=== PATIENT | female | born 1940 | race Caucasian/White ===

== ENCOUNTER 2021-05-13 12:17 | Emergency (ER) | payer MEDICARE, OTHER ==
[~2021-05-13] VITALS: Ht 167.6 cm; Wt 80.3 kg
[~2021-05-13 12:17] MED LIST: AMLODIPINE-BEN1 EACH PO; CHLORTHALIDONE25 MG PO; DESONIDE5 GM MC; HYDRALAZINE HCL25 MG PO; HYDROXYZINE HCL25 MG PO; LEVOTHYROXINE75 MCG PO; LOSARTAN POTASS50 MG PO; PREDNISONE20 MG PO
[2021-05-13] MEDS ORDERED: VITAMIN C500 M5 PO (12:38)
[2021-05-13] MEDS ORDERED: ELIQUIS5 MG PO (12:38)
[2021-05-13] MEDS ORDERED: LIPITOR20 MG (12:39)
[2021-05-13] MEDS ORDERED: COREG6.25 MG PO (12:39)
[2021-05-13] MEDS ORDERED: CALCIUM500 MG PO (12:40)
--- NOTE | 2021-05-14 22:31 | EKG ---
[facility] [address] [facility] [place], [place] [address] Signed AV dual-paced rhythm with premature supraventricular complexes Abnormal ECG When compared with ECG of 13-DEC-2016 11:00, Previous ECG has undetermined rhythm, needs review Confirmed by LEONOR FLORIAN DO ([id number]) on 05/14/2021 10:31:02 PM Electronically Signed By: LEONOR FLORIAN DO 05/14/212230 PATIENT NAME: NEETA MARTÍNEZ SHAREE Electrocardiogram DATE OF : 42 PHYSICIAN: LEONOR FLORIAN DO REPORT #: [id number] REPORT IS CONFIDENTIAL AND NOT TO BE RELEASED WITHOUT AUTHORIZATION
== END 2021-05-13 16:48 | disposition home or self-care (01) ==
LOC: ED 12:17
DX: G45.9 Transient cerebral ischemic attack, unspecified (principal); I10 Essential (primary) hypertension; E03.9 Hypothyroidism, unspecified; Z79.899 Other long term (current) drug therapy; Z95.0 Presence of cardiac pacemaker; Z79.01 Long term (current) use of anticoagulants
CPT/HCPCS: 70450; 71045; 80053; 84484; 85025; 85610; 85730; 93005; 93010; 93880; 99284-25

== ENCOUNTER 2022-03-10 20:57 | Emergency (ER) | payer MEDICARE, OTHER ==
[~2022-03-10] VITALS: Ht 167.6 cm; Wt 80.3 kg
[~2022-03-10 20:57] MED LIST changes: +CALCIUM500 MG PO; +COREG6.25 MG PO; +ELIQUIS5 MG PO; +LIPITOR20 MG; +VITAMIN C500 M5 PO
== END 2022-03-10 22:18 | disposition home or self-care (01) ==
LOC: ED 20:57
DX: R09.89 Other specified symptoms and signs involving the circulatory and respiratory systems (principal); Z20.822 Contact with and (suspected) exposure to COVID-19; I10 Essential (primary) hypertension; E03.9 Hypothyroidism, unspecified; Z88.8 Allergy status to other drugs, medicaments and biological substances; Z88.6 Allergy status to analgesic agent
CPT/HCPCS: 87502; U0003

== ENCOUNTER 2024-06-19 12:31 | Emergency (ER) | payer MEDICARE, OTHER ==
[~2024-06-19] VITALS: Ht 167.6 cm; Wt 87.4 kg
[2024-06-19 13:07] LABS: BASOPHILS 0.7 % (0-2); HEMATOCRIT 39.6 % (35.0-50.0); HEMOGLOBIN 12.7 g/dL (12.0-18.0); LYMPHOCYTES 18.7 % (24-44); MCH 30.8 (27-36); MCHC 32.1 g/dl (30-36); MCV 95.8 fl (81-99); MONOCYTES 7.9 % (0-12); NEUTROPHILS 70.7 % (39-80); PLATELET COUNT 265 K/uL (140-440); RBC 4.13 M/ul (4.3-5.7); RDW 13.6 (10.5-15.0)
[2024-06-19 13:19] LABS: INR 1.04 (0.80-1.30); PROTIME 13.2 Sec (11.2-14.2)
[2024-06-19 13:22] LABS: PARTIAL THROMBOPLASTIN TIME 32.9 Sec (22.9-41.3)
[2024-06-19 13:25] LABS: ALBUMIN 3.6 g/dL (3.4-5.0); ALBUMIN/GLOBULIN RATIO 1.16 (1.1-2.4); ANION GAP 11.9 (7-21); BILIRUBIN, TOTAL 0.4 ng/dL (0.2-1.0); BUN/CREATININE RATIO 21.83 (6.0-28.6); CALCIUM 9.4 mg/dL (8.5-10.1); CREATININE, SERUM 0.87 mg/dL (0.55-1.02); MAGNESIUM 1.8 mg/dL (1.8-2.4); POTASSIUM 3.9 mmol/L (3.5-5.1); PROTEIN, TOTAL 6.7 g/dL (6.4-8.2)
[2024-06-19 16:02] VITALS: BP 142/67
--- NOTE | 2024-06-21 17:36 | EKG ---
[facility] [address] [facility] [place] [address] Signed AV dual-paced rhythm Abnormal ECG When compared with ECG of 13-MAY-2021 13:03, premature supraventricular complexes are no longer present Confirmed by Yadi Thompson MD ([id number]) on 06/21/2024 5:36:30 PM Electronically Signed By: YADI THOMPSON DO 06/21/24 1736 PATIENT NAME: NEETA MARTÍNEZ Electrocardiogram DATE OF : 42 PHYSICIAN: YADI THOMPSON DO REPORT #: [id number] REPORT IS CONFIDENTIAL AND NOT TO BE RELEASED WITHOUT AUTHORIZATION
== END 2024-06-19 16:00 | disposition home or self-care (01) ==
LOC: ED 12:31
PROVIDERS: Emergency Medicine
DX: I10 Essential (primary) hypertension (principal); E03.9 Hypothyroidism, unspecified; Z95.0 Presence of cardiac pacemaker; Z88.8 Allergy status to other drugs, medicaments and biological substances; Z79.890 Hormone replacement therapy; Z88.6 Allergy status to analgesic agent; Z79.01 Long term (current) use of anticoagulants; Z79.899 Other long term (current) drug therapy
CPT/HCPCS: 36415; 70450; 70496; 70498; 80053; 83735; 85025; 85610; 85730; 93005; 93010; 99284-25; Q9967